=== PATIENT | male | born 1965 | race Asian ===

== ENCOUNTER 2024-04-23 02:12 | Emergency (ER) | payer MEDICAID, OTHER ==
[~2024-04-23] VITALS: Ht 167.6 cm; Wt 70.3 kg
[2024-04-23] MEDS ORDERED: METOCLOPRAMIDE HCL 10 MG/2 ML VIAL ONE (02:53)
[2024-04-23] MEDS ORDERED: diphenhydrAMINE HCL 50 MG/ML VIAL ONE (02:53)
[2024-04-23] MEDS ORDERED: ACETAMINOPHEN 325 MG TABLET ONE (02:53)
[2024-04-23] MEDS: ACETAMINOPHEN 325 MG TABLET PO ONE (02:54)
[2024-04-23] MEDS: diphenhydrAMINE HCL 50 MG/ML VIAL IV ONE (02:54)
[2024-04-23] MEDS: METOCLOPRAMIDE HCL 10 MG/2 ML VIAL IV ONE (02:54)
[2024-04-23 03:04] LABS: BASOPHILS % (AUTO) 0.2 % (0.0-2.0); EOSINOPHILS # (AUTO) 0.2 K/uL (0.0-0.7); EOSINOPHILS % (AUTO) 3.3 % (0.0-6.0); HEMATOCRIT 46 % (39-51); HEMOGLOBIN 15.1 g/dL (13.5-17.5); LYMPHOCYTES # (AUTO) 1.5 K/uL (0.8-4.8); LYMPHOCYTES % (AUTO) 24.2 % (20.0-44.0); MEAN CORPUSCULAR HEMOGLOBIN 33 PG (26.0-33.0); MEAN CORPUSCULAR HGB CONC 33 g/dl (31.0-36.0); MEAN CORPUSCULAR VOLUME 99 fL (80-96); MONOCYTES # (AUTO) 0.4 K/uL (0.1-1.30); MONOCYTES % (AUTO) 6.8 % (2.0-12.0); NEUTROPHILS # (AUTO) 4.1 K/uL (1.8-8.9); NEUTROPHILS % (AUTO) 65.5 % (43.0-81.0); PLATELET COUNT (AUTO) 182 K/uL (150-450); RED BLOOD CELL COUNT(AUTO) 4.62 MIL/uL (4.5-6.0); RED CELL DISTRIBUTION WIDTH 13.1 % (11.5-15.0); WHITE BLOOD COUNT (AUTO) 6.3 K/uL (4.3-11.0)
[2024-04-23] MEDS ORDERED: IOHEXOL-350 100 ML VIAL IV ONE (03:08)
[2024-04-23] MEDS ORDERED: CT SWABBABLE VALVE TRANS SET 1 EA INFUS.SET MC ONE (03:09)
[2024-04-23] MEDS ORDERED: IV NS 0.9% 250 ML IV ONE (03:10)
[2024-04-23 03:16] LABS: CALCIUM, SERUM 8.7 mg/dL (8.5-10.1); CARBON DIOXIDE 26 mmol/L (21-32); CHLORIDE 106 mmol/L (98-107); CREATININE 1.3 mg/dL (0.6-1.3); GLUCOSE 102 mg/dL (74-106); POTASSIUM 3.8 mmol/L (3.5-5.1); SODIUM SERUM 141 mmol/L (136-145); UREA NITROGEN, BLOOD 17 mg/dL (7-18)
[2024-04-23 03:24] LABS: ALANINE AMINOTRANSFERASE 55 U/L (12-78); ALBUMIN 3.4 g/dL (3.4-5.0); ALKALINE PHOSPHATASE 106 U/L (46-116); ASPARTATE AMINOTRANSFERASE 47 U/L (15-37); BILIRUBIN,DIRECT 0.1 mg/dL (0.0-0.2); BILIRUBIN,TOTAL 0.7 mg/dL (0.2-1.0); TOTAL PROTEIN, SERUM 6.8 g/dL (6.4-8.2)
[2024-04-23 05:46] VITALS: BP 113/80; TEMP 98; O2SAT 97
== END 2024-04-23 05:46 | disposition home or self-care (01) ==
LOC: ER 02:15
DX: I65.23 Occlusion and stenosis of bilateral carotid arteries (principal); I70.90 Unspecified atherosclerosis; R91.8 Other nonspecific abnormal finding of lung field; Z88.0 Allergy status to penicillin
CPT/HCPCS: 99285; 70450; 96374; 71045; 96375; 93005; 70498; 70496; 85025; 80048; 80076; 36415; 84484 ×2; J1200; J2765; J7050; Q9967